=== PATIENT | female | born 1990 | race Caucasian/White ===

== ENCOUNTER 2017-09-06 05:32 | Outpatient (CLI) | payer OTHER ==
[~2017-09-06] VITALS: Ht 175.3 cm; Wt 127.0 kg
[2017-09-06] MEDS ORDERED: MULT-178 PO (09:38)
[2017-09-07] MEDS ORDERED: HYDR-757 PO (08:59)
[2017-09-07] MEDS ORDERED: IBUP-1773 PO (08:59)
[2017-09-07] MEDS ORDERED: FERR325T18 PO (09:21)
--- NOTE | 2017-09-07 15:15 | OPERATIVE REPORT ---
DATE OF SERVICE: PREOPERATIVE DIAGNOSES: 1. Incomplete . 2. Abnormal uterine bleeding. POSTOPERATIVE DIAGNOSES: 1. Incomplete . 2. Abnormal uterine bleeding. PROCEDURE: Suction D and C. SURGEON: Dr. Bernardo Solorio. ANESTHESIA: LMA. ESTIMATED BLOOD LOSS: Minimal. URINE OUTPUT: 250 clear drained prior to start of the procedure. FLUIDS: 500 mL of lactated Ringer solution. FINDINGS: Mildly enlarged uterus, scant amount of products of conception, grossly normal appearing vaginal mucosa and cervix. SPECIMEN SENT: Endometrial curettings. INDICATION OF PROCEDURE: This 27-year-old female was a self consultation in my office for ongoing issues of bleeding for almost 4 weeks after and during a miscarriage. She reported the diagnosis of miscarriage approximately 3 to 4 weeks ago, undergoing heavy irregular bleeding since passing large clots at times and immediately brought into the Emergency Department. At this point, I recommended with the patient repeating beta hCG. She was continuing to go down to proceed with D and C. We discussed suction D and C and the indications for this was an incomplete AB being underlying diagnosis; however, even if there was a likelihood that the beta hCG had dropped to a nominal level, we still proceed with D and C due to the bleeding pattern. Risks of the procedure discussed with the patient in detail including risk of bleeding, infection, damaging the uterus itself, postoperative complications and anesthesia. After everything was discussed with the patient in the preoperative area, consent was obtained. The patient was taken to the operative room. OPERATIVE REPORT IN DETAIL: Once in the operating room, general anesthesia was found to be adequate. She was placed in dorsal lithotomy position, prepped and draped in normal sterile fashion. The bladder is first straight catheterized and emptied and 250 mL of clear urine was emptied at that point. A weighted speculum inserted in the patient's vagina. A right angle retractor was used to visualize the cervix grasped at 12 0' clock position using a long Allis clamp. I then gently sound the uterine cavity, depth was found to be approximately 7 cm. I then gently dilated the cervix using Hegar dilators to maximum dilatation of 1 cm. After this was performed, I then gently introduced a #7 rigid curved [place] curette into the endometrial cavity and deployed the [place] device. Once it is activated, it proceeds to maximum pressure of 55 mmHg at which point I clear endometrial canal of all debris and residual tissue. This was done on several passes. There is no active bleeding noted. I then performed a light gentle curette of the endometrial lining, which was found to have scant tissue come out at that point. A final pass was brought to [place] curette is performed after which there is no active bleeding noted. There is a small amount of bleeding noted from the area on the cervix during the dilation process. This area was made hemostatic using silver nitrate. All other instruments were removed from the patient's vagina. The patient tolerated the procedure well and sent to recovery in stable condition. Lap and sponge count was correct at the end of the procedure, instrument counts correct as well. 100 mg of doxycycline given preoperatively for infection prophylaxis. Job ID: [id number] DocumentID: [id number] Dictated Date: 09/07/2017 09:26:35 [employer]her Date: 09/07/2017 12:52:46 Dictated By: DO ROMULO WALTON
== END 2017-09-06 09:55 ==
LOC: PREOP 05:32
PROVIDERS: ATTEND Obstetrics & Gynecology
DX: Z01.818 Encounter for other preprocedural examination (principal); O03.4 Incomplete spontaneous abortion without complication